=== PATIENT | female | born 1990 | race Caucasian/White ===

== ENCOUNTER 2021-05-14 17:46 | Emergency (ER) | payer BC, OTHER ==
[~2021-05-14] VITALS: Ht 167.6 cm; Wt 119.0 kg
[2021-05-14] MEDS ORDERED: IOHEXOL 300 MG/ML 75 ML VIAL. IV ONE (18:15)
[2021-05-14] MEDS ORDERED: IV NORMAL SALINE 1,000ML 1,000 ML IV SCH (18:15)
[2021-05-14] MEDS ORDERED: ONDANSETRON PF 4 MG/2 ML VIAL. IVP ONE (18:15)
--- NOTE | 2021-05-14 18:25 | PHYS DOC ---
General Adult EDM: Chief Complaint: NAUSEA/VOMITING/DIARRHEA HPI: HPI: Patient is a 31-year-old female who presents to the emergency department with nausea, vomiting, diarrhea and epigastric pain that started this morning. Patient rates her abdominal pain 6 out of 10 describes it as a stabbing pain. Patient has had a cholecystectomy. Patient reports taking Zofran and Imodium this morning without any relief in her symptoms. Patient believes that she may have food poisoning as she went to a [employer] party yesterday and there was another person at the alliance party who was also sick with similar symptoms. Is also unsure if maybe she has Covid. Patient denies any cough, shortness of breath, fevers, urinary symptoms. She reports that she had blood-streaked in her vomit this morning but denies blood filled vomit. (SALINAS LY APRN) Review of Systems: Review of Systems: Constitutional: See HPI Respiratory: See HPI GI: See HPI : See HPI (SALINAS LY APRN) Current Medications: Current Meds: Current Medications Medications (Trade) Dose Ordered Sig/Bernabe Start Time Stop Time Status Last Admin Dose Admin Iohexol (Omnipaque 300 Mg/ml) 75 ml 1X ONCE 05/14/21 18:15 05/14/21 18:16 DC Ondansetron HCl (Zofran) 4 mg 1X ONCE 05/14/21 18:15 05/14/21 18:16 DC 05/14/21 18:17 4 MG Sodium Chloride 1,000 ml @ 1,000 mls/hr Q1H 05/14/21 18:15 05/14/21 19:14 05/14/21 18:17 1,000 MLS/HR (SALINAS LY APRN) Allergies: Allergies: Allergies Coded Allergies Type Severity Reaction Last Updated Verified No Known Drug Allergies 05/14/21 No (SALINAS LY APRN) Physical Exam: PE: Constitutional: Well developed, well nourished, no acute distress, non-toxic appearance. [] HENT: Normocephalic, atraumatic, bilateral external ears normal, oropharynx moist, no oral exudates, nose normal. [] Eyes: PERRL, EOMI, conjunctiva normal, no discharge. [] Neck: Normal range of motion, no abdominal guarding or rigidity, negative Martinez sign, negative Rovsing sign, obese, tenderness with palpation to epigastric region, supple, no stridor. [] Cardiovascular:Heart rate regular rhythm, no murmur [] Lungs & Thorax: Bilateral breath sounds clear to auscultation [] Abdomen: Bowel sounds normal, soft, no tenderness, no masses, no pulsatile masses. [] Skin: Warm, dry, no erythema, no rash. [] Back: No tenderness, normal range of motion Extremities: No tenderness, no cyanosis, no clubbing, ROM intact, no edema. [] Neurologic: Alert and oriented X 3, normal motor function, normal sensory function, no focal deficits noted. [] Psychologic: Affect normal, judgement normal, mood normal. [] (SALINAS LY APRN) Current Patient Data: Labs: Laboratory Tests Test 05/14/21 18:22 05/14/21 18:25 Bedside Urine HCG, Qualitative hcg negative White Blood Count 5.5 x10^3/uL Red Blood Count 4.82 x10^6/uL Hemoglobin 14.1 g/dL Hematocrit 41.3 % Mean Corpuscular Volume 86 fL Mean Corpuscular Hemoglobin 29 pg Mean Corpuscular Hemoglobin Concent 34 g/dL Red Cell Distribution Width 13.9 % Platelet Count 212 x10^3/uL Neutrophils (%) (Auto) 83 % Lymphocytes (%) (Auto) 10 % Monocytes (%) (Auto) 4 % Eosinophils (%) (Auto) 2 % Basophils (%) (Auto) 0 % Neutrophils # (Auto) 4.6 x10^3uL Lymphocytes # (Auto) 0.6 x10^3/uL Monocytes # (Auto) 0.2 x10^3/uL Eosinophils # (Auto) 0.1 x10^3/uL Basophils # (Auto) 0.0 x10^3/uL Urine Collection Type Clean catch Urine Color Yellow Urine Clarity Clear Urine pH 5.5 Urine Specific [place] >=1.030 Urine Protein Neg Urine Glucose (UA) Neg mg/dL Urine Ketones (Stick) Neg mg/dL Urine Blood Neg Urine Nitrite Neg Urine Bilirubin Neg Urine Urobilinogen Dipstick 0.2 mg/dL Urine Leukocyte Esterase Neg Urine RBC 0 /HPF Urine WBC 0 /HPF Urine Squamous Epithelial Cells Mod /LPF Urine Bacteria 0 /HPF Sodium Level 136 mmol/L Potassium Level 3.5 mmol/L Chloride Level 100 mmol/L Carbon Dioxide Level 24 mmol/L Anion Gap 12 Blood Urea Nitrogen 15 mg/dL Creatinine 0.7 mg/dL Estimated GFR (Cockcroft-Gault) 96.4 BUN/Creatinine Ratio 21 Glucose Level 112 mg/dL Calcium Level 8.8 mg/dL Total Bilirubin 0.6 mg/dL Aspartate Amino Transf (AST/SGOT) 20 U/L Alanine Aminotransferase (ALT/SGPT) 34 U/L Alkaline Phosphatase 75 U/L Total Protein 7.5 g/dL Albumin 4.0 g/dL Albumin/Globulin Ratio 1.1 Lipase 88 U/L Influenza Type A (Rapid) Negative Influenza Type B (Rapid) Negative SARS-CoV-2 Antigen (Rapid) Negative Current Medications Medications (Trade) Dose Ordered Sig/Bernabe Route PRN Reason Start Time Stop Time Status Last Admin Dose Admin Sodium Chloride 1,000 ml @ 1,000 mls/hr Q1H IV 05/14/21 18:15 05/14/21 19:14 DC 05/14/21 18:17 Ondansetron HCl (Zofran) 4 mg 1X ONCE IVP 05/14/21 18:15 05/14/21 18:16 DC 05/14/21 18:17 Iohexol (Omnipaque 300 Mg/ml) 75 ml 1X ONCE IV 05/14/21 18:15 05/14/21 18:16 DC 05/14/21 18:29 Ketorolac Tromethamine (Toradol 30mg Vial) 30 mg 1X ONCE IVP 05/14/21 18:45 05/14/21 18:46 DC 05/14/21 18:50 Prochlorperazine Edisylate (Compazine) 10 mg 1X ONCE IV 05/14/21 19:30 05/14/21 19:31 DC 05/14/21 19:30 (SALINAS LY APRN) EKG: EKG: [] (SALINAS LY APRN) Radiology/Procedures: Radiology/Procedures: []PROCEDURE: CT ABD PELV W/ IV CONTRST ONLY CT ABDOMEN+PELVIS W History: Epigastric pain, nausea vomiting diarrhea. Comparison: None. Technique: CT the abdomen and pelvis with intravenous contrast. Findings: The lung bases are clear. No pleural or pericardial effusion. The liver is unremarkable. There is mild intrahepatic biliary ductal dilatation status post cholecystectomy. The pancreas is normal. Mild splenomegaly measuring 14 cm AP by 12 cm craniocaudal. The adrenal glands are unremarkable. The kidneys are normal. The bladder is relatively decompressed without focal abnormality. Uterus and adnexa are within normal limits. The stomach and small bowel are within normal limits. There is a normal appendix. No pericolonic inflammatory changes. No intra-abdominal free air or free fluid. No adenopathy. Vascular structures are within normal limits. No adenopathy. Soft tissues are unremarkable. No acute osseous abnormality. Impression: 1. No acute inflammatory changes in the abdomen and pelvis. 2. Mild splenomegaly. 3. Mild intrahepatic biliary ductal dilatation status post cholecystectomy. Correlate with laboratory evidence for cholestasis. ------ Exposure: One or more of the following individualized dose reduction techniques were utilized for this examination: 1. Automated exposure control 2. Adjustment of the mA and/or kV according to patient size 3. Use of iterative reconstruction technique. Electronically signed by: Chente Lemos MD (05/14/2021 7:11 PM) [facility] DICTATED AND SIGNED BY: CHENTE LEMOS MD DATE: 05/14/211907 CC: SALINAS LY APRN; PCP,NO ~MTH0 0 (SALINAS LY APRN) Heart Score: C/O Chest Pain: N/A Risk Factors: Risk Factors: DM, Current or recent (<one month) smoker, HTN, HLP, family history of CAD, obesity. Risk Scores: Score 0 - 3: 2.5% MACE over next 6 weeks - Discharge Home Score 4 - 6: 20.3% MACE over next 6 weeks - Admit for Clinical Observation Score 7 - 10: 72.7% MACE over next 6 weeks - Early Invasive Strategies (SALINAS LY APRN) Course & Med Decision Making: Course & Med Decision Making Pertinent Labs and Imaging studies reviewed. (See chart for details) [] Patient presents to the emergency department for nausea, vomiting, diarrhea and epigastric pain that started this morning. Patient is unsure if she got food poisoning from a [employer] party as there was another person who attended the alliance party with similar symptoms or if she has COVID-19. Work-up in the ER consisted of blood work, urinalysis and CT imaging of abdomen and pelvis. Patient treated with IV fluids and nausea medication. Blood streaked in vomit likely from irritation as it did not fill the toilet and was a small amount. Patient's blood work was unremarkable. Urinalysis showed no acute findings. Rapid flu and COVID were negative. Patient CT scan of her abdomen showed mild splenomegaly and mild bile duct dilation which possibly could be Cholestasis but patient had normal blood work and no elevation in her liver enzymes or bilirubin. Patient will be treated with nausea medication. She is advised to stick to a clear liquid diet followed by bland diet with a brat diet. Patient advised to avoid any foods that are spicy, greasy or fatty. Patient reports improvement in her nausea following treatment in the emergency department is able to tolerate oral intake. I discussed with patient all findings and diagnostic testing as well as the need to follow-up with PCP for further evaluation and treatment or return to the ER if any new or worsening symptoms. Strict return precautions were also discussed at length. Patient voiced understanding and agreement with the plan. Patient is hemodynamically stable at the time of disposition. (SALINAS LY APRN) Dragon Disclaimer: Freida Disclaimer: This electronic medical record was generated, in whole or in part, using a voice recognition dictation system. (SALINAS LY APRN) Departure Departure: Impression: Primary Impression: Gastroenteritis Disposition: 01 HOME / SELF CARE / HOMELESS Condition: GOOD Referrals: PCP,JACOB (PCP) Patient Instructions: Nausea and Vomiting, Viral Gastroenteritis Additional Instructions: You were seen in the emergency department today for nausea, vomiting, diarrhea and abdominal pain. Your blood work, urinalysis were negative. Your flu and COVID test were negative. Your CT scan showed a mildly enlarged spleen which could be in reaction to a viral illness. Please follow-up with your primary care provider regarding these findings. You are likely experiencing gastroenteritis which could be viral in nature. Please increase your fluids and stick to a clear liquid diet for the rest of today which includes soups/broths, Gatorade or Jell-O's. You are being discharged home with a nausea medication that you can take as needed. He will, I would advise eating a bland diet, we recommend a brat diet which includes bananas, rice, applesauce and toast. Please avoid any foods that are spicy, greasy or fatty. Follow-up with your primary care provider tomorrow regarding your ER visit. Return to the emergency department if you develop abdominal pain, intractable nausea or vomiting, high fevers refractory to treatment, blood in your stools or vomit, inability to tolerate oral intake, or any new or worsening concerns. Scripts Ondansetron (ONDANSETRON ODT) 4 Mg Tab.rapdis 1 TAB PO PRN Q6-8HRS for nausea for 7 Days, #28 TAB 0 Refills Prov: SALINAS LY APRN 05/14/21 Dragon Disclaimer This chart was dictated in whole or in part using Voice Recognition software in a busy, high-work load, and often noisy Emergency Department environment. It may contain unintended and wholly unrecognized errors or omissions. (SHEILA MONTERO MD) Attending Signature Attending Signature I have participated in the care of this patient and I have reviewed and agree with all pertinent clinical information above including history, exam, and recommendations. (SHEILA MONTERO MD) SALINAS LY APRN May 14, 2021 18:25 SHEILA MONTERO MD May 15, 2021 20:07
[2021-05-14 18:38] LABS: BASO % 0 % (0-3); EOS # 0.1 x10^3/uL (0.0-0.7); EOS % 2 % (0-3); HEMATOCRIT 41.3 % (36.0-47.0); HEMOGLOBIN 14.1 g/dL (12.0-15.5); LYMPH # 0.6 x10^3/uL (1.0-4.8); LYMPH % 10 % (24-48); MEAN CORPUSCULAR HEMOGLOBIN 29 pg (25-35); MEAN CORPUSCULAR HGB CONC 34 g/dL (31-37); MEAN CORPUSCULAR VOLUME 86 fL (79-100); MONO # 0.2 x10^3/uL (0.0-1.1); MONO % 4 % (0-9); NEUT # 4.6 x10^3uL (1.8-7.7); NEUT % 83 % (31-73); PLATELET COUNT 212 x10^3/uL (140-400); RED BLOOD COUNT 4.82 x10^6/uL (3.50-5.40); RED CELL DISTRIBUTION WIDTH 13.9 % (11.5-14.5); WHITE BLOOD COUNT 5.5 x10^3/uL (4.0-11.0)
[2021-05-14 18:40] LABS: CLARITY,URINE CLEAR; COLOR,URINE YELLOW; GLUCOSE,URINE NEG (NEG); UROBILINOGEN,URINE 0.2 mg/dL (0.2 mg/dL)
[2021-05-14 18:41] LABS: BACTERIA,URINE 0 /HPF (0-FEW); NITRITE,URINE NEG (NEG); RBC,URINE 0 /HPF (0-2); SQUAMOUS EPITHELIAL CELL,UR MOD /LPF; WBC,URINE 0 /HPF (0-4)
[2021-05-14] MEDS ORDERED: KETOROLAC 30 MG/ML VIAL. IVP ONE (18:45)
[2021-05-14 18:48] LABS: CALCIUM 8.8 mg/dL (8.5-10.1); CREATININE 0.7 mg/dL (0.6-1.0); GFR 96.4; POTASSIUM 3.5 mmol/L (3.5-5.1)
[2021-05-14 18:53] LABS: ALBUMIN/GLOBULIN RATIO 1.1 (1.0-1.7); TOTAL BILIRUBIN 0.6 mg/dL (0.2-1.0); TOTAL PROTEIN 7.5 g/dL (6.4-8.2)
[2021-05-14 18:55] LABS: INFLUENZA A PATIENT NEGATIVE (NEGATIVE); INFLUENZA B PATIENT NEGATIVE (NEGATIVE)
--- NOTE | 2021-05-14 19:14 | RAD ---
CT ABDOMEN+PELVIS W History: Epigastric pain, nausea vomiting diarrhea. Comparison: None. Technique: CT the abdomen and pelvis with intravenous contrast. Findings: The lung bases are clear. No pleural or pericardial effusion. The liver is unremarkable. There is mild intrahepatic biliary ductal dilatation status post cholecyst ectomy. The pancreas is normal. Mild splenomegaly measuring 14 cm AP by 12 cm craniocaudal. The adren al glands are unremarkable. The kidneys are normal. The bladder is relatively decompressed without fo topher abnormality. Uterus and adnexa are within normal limits. The stomach and small bowel are within normal limits. There is a normal appendix. No pericolonic infl ammatory changes. No intra-abdominal free air or free fluid. No adenopathy. Vascular structures are w ithin normal limits. No adenopathy. Soft tissues are unremarkable. No acute osseous abnormality. Impression: 1. No acute inflammatory changes in the abdomen and pelvis. 2. Mild splenomegaly. 3. Mild intrahepatic biliary ductal dilatation status post cholecystectomy. Correlate with laborator y evidence for cholestasis. ------ Exposure: One or more of the following individualized dose reduction techniques were utilized for thi s examination: 1. Automated exposure control 2. Adjustment of the mA and/or kV according to patient size 3. Use of iterative reconstruction technique. Electronically signed by: Chente Serrano MD (05/14/2021 7:11 PM) [facility]
[2021-05-14] MEDS ORDERED: PROCHLORPERAZINE 10 MG/2 ML VIAL. IV ONE (19:30)
[2021-05-14] MEDS ORDERED: ONDA4TAB12 PO (20:16)
[2021-05-14 20:34] VITALS: BP 171/63
== END 2021-05-14 20:39 | disposition home or self-care (01) ==
LOC: ER 17:55
DX: K52.9 Noninfective gastroenteritis and colitis, unspecified (principal); Z20.822 Contact with and (suspected) exposure to COVID-19; Z90.49 Acquired absence of other specified parts of digestive tract
CPT/HCPCS: 36415; 74177; 80053; 81001; 81025; 83690; 85025; 87428; 96361; 96374; 96375; 99285; J0780; J1885; J2405; J7030; Q9967